=== PATIENT | male | born 1990 | race Two or more races ===

== ENCOUNTER 2021-01-07 12:49 | Emergency (ER) | payer OTHER ==
[~2021-01-07] VITALS: Ht 160 cm; Wt 63.6 kg
[2021-01-07 12:57] VITALS: BP 122/76
[2021-01-07] MEDS ORDERED: MethylPREDNISolone SOD SUCC 125 MG/2 ML VIAL IVP ONE (13:45)
[2021-01-07] MEDS ORDERED: ACETAMINOPHEN 650 MG/20.3 ML SOLUTION UDCUP PO ONE (13:45)
[2021-01-07] MEDS ORDERED: MethylPREDNISolone SOD SUCC 125 MG/2 ML VIAL IM ONE (13:45)
== END 2021-01-07 15:01 | disposition home or self-care (01) ==
LOC: EMS 12:54
DX: J02.9 Acute pharyngitis, unspecified (principal)
CPT/HCPCS: 87430; 96372; 99283; J2930

== ENCOUNTER 2021-02-02 17:50 | Emergency (ER) | payer OTHER ==
[~2021-02-02] VITALS: Ht 165.1 cm; Wt 59.1 kg
[2021-02-02] MEDS ORDERED: SODIUM CHLORIDE 0.9% 1,750 ML IV ONE (19:30)
[2021-02-02] MEDS ORDERED: 0.9% SODIUM CHLORIDE 10 ML SYRINGE IVP PRN (19:30)
[2021-02-02 20:01] LABS: BASOPHILS % (AUTO) 0.5 % (0.0-2.0); EOSINOPHILS % (AUTO) 0.3 % (1.0-6.0); HEMATOCRIT 42.6 % (41-53); HEMOGLOBIN 14.6 g/dL (13.5-17.5); LYMPHOCYTES # (AUTO) 1.8 K/uL (1.0-4.8); LYMPHOCYTES % (AUTO) 18.1 % (22.0-44.0); MEAN CORPUSCULAR HGB CONC 34.3 G/dL (31.0-37.0); MEAN CORPUSCULAR VOLUME 87 fL (80-100); MONOCYTES # (AUTO) 0.8 K/uL (0.1-1.0); MONOCYTES % (AUTO) 8.4 % (2.0-9.0); NEUTROPHILS # (AUTO) 7.3 K/uL (1.8-7.7); NEUTROPHILS % (AUTO) 72.7 % (40.0-70.0); PLATELET COUNT (AUTO) 260 K/uL (150-450); RED BLOOD CELL COUNT(AUTO) 4.88 MIL/uL (4.50-5.90)
[2021-02-02 20:09] LABS: COVID AG,FIA SOURCE NASOPHARYNGEAL
[2021-02-02 20:14] LABS: ANION GAP 7 mmol/L (8-16); CALCIUM, TOTAL 9.3 mg/dL (8.8-10.5); CARBON DIOXIDE 30 mmol/L (22-29); CHLORIDE 99 mmol/L (98-107); CREATININE 1.14 mg/dL (0.60-1.30); GLOMERULAR FILTR. RATE CALC > 60 mL/min (>60); GLUCOSE,RANDOM 87 mg/dL (70-110); POTASSIUM 4.1 mmol/L (3.5-5.1); SODIUM SERUM 136 mmol/L (136-145); UREA NITROGEN, BLOOD 11 mg/dL (7-18)
[2021-02-02] MEDS ORDERED: KETOROLAC TROMETHAMINE 30 MG/ML VIAL IVP ONE (20:15)
[2021-02-02 20:18] LABS: PROTHROMBIN TIME 10.7 SEC (9.4-11.6)
[2021-02-02 20:19] LABS: LACTIC ACID 1.3 mmol/L (0.4-2.0)
[2021-02-02 20:23] LABS: B-TYPE NATRIURETIC PEPTIDE < 5 pg/mL (0-100)
[2021-02-02] MEDS ORDERED: AMOXICILLIN TRIHYDRATE 250 MG CAPSULE PO ONE (20:30)
[2021-02-02 20:38] LABS: ALANINE AMINOTRANSFERASE 32 U/L (12-78); ALBUMIN 4.1 g/dL (3.4-5.0); ALKALINE PHOSPHATASE 72 U/L (46-116); ASPARTATE AMINOTRANSFERASE 25 U/L (15-37); BILIRUBIN,TOTAL 0.6 mg/dL (0.1-1.0); CREATINE KINASE, TOTAL ONLY 92 U/L (39-308); TOTAL PROTEIN, SERUM 8.9 g/dL (6.4-8.2)
[2021-02-02 21:00] LABS: INFLUENZA TYPE A NEGATIVE FOR TYPE A (NEGATIVE); INFLUENZA TYPE B NEGATIVE FOR TYPE B (NEGATIVE)
[2021-02-02 22:10] VITALS: BP 107/61
== END 2021-02-02 22:10 | disposition home or self-care (01) ==
LOC: EMS 17:52
DX: U07.1 COVID-19 (principal)
CPT/HCPCS: 71045; 80053; 82550; 83605; 83880; 84145; 84484; 85025; 85610; 87040; 87426; 87430; 87804; 93005; 96361; 96374; 99285; J1885; J7030; U0003

== ENCOUNTER 2022-02-09 13:11 | Emergency (ER) | payer OTHER ==
[~2022-02-09] VITALS: Ht 160 cm; Wt 63.6 kg
[2022-02-09 14:25] VITALS: BP 119/70
[2022-02-09] MEDS ORDERED: MUPI1OIN5 TP (14:54)
[2022-02-09] MEDS ORDERED: [UNRECOGNIZED DRUG - OTHER] PR (14:54)
== END 2022-02-09 15:10 | disposition home or self-care (01) ==
LOC: EMS 13:11
DX: K60.2 Anal fissure, unspecified (principal)
CPT/HCPCS: 99283